=== PATIENT | female | born 1995 | race American Indian/Alaskan Native ===

== ENCOUNTER 2017-12-20 04:46 | Inpatient (IN) | payer MEDICAID ==
[2017-12-20] MEDS ORDERED: PITOCin/NS 20 UNIT/1000ML DRIP 20 UNITS/1,000 ML BAG IV SCH ×2 (06:00→22:00)
[2017-12-20 06:10] LABS: Hematocrit 37.4 % (30.3-42.9); Hemoglobin 12.4 gm/dl (10.1-14.3); Mean Corpuscular HGB Conc 33 % (30-34); Mean Corpuscular Hemoglobin 31 pg (28-32); Mean Corpuscular Volume 94 fl (79-97); Platelet Count 239 K/mm3 (140-440); Red Cell Distribution Width 15.8 % (13.2-15.2)
[2017-12-20 07:28] LABS: Amphetamine Screen,Urine PRESUMPTIVE NEGATIVE; Benzodiazepines Screen,Urine PRESUMPTIVE NEGATIVE; Cannabinoid Screen,Urine PRESUMPTIVE NEGATIVE; Cocaine Screen,Urine PRESUMPTIVE NEGATIVE; Methadone Screen,Urine PRESUMPTIVE NEGATIVE; Opiate Screen,Urine PRESUMPTIVE NEGATIVE
[2017-12-20] MEDS: LACTATED RINGERS 1,000 ML IV SCH (08:09)
--- NOTE | 2017-12-20 17:39 | Ultrasound Report ---
FINAL REPORT PROCEDURE: US OB LIMITED TECHNIQUE: Real-time limited sonographic examination was performed for evaluation of amniotic fluid volume for each fetus with image documentation (1 or more fetuses). CPT 81081 HISTORY: RIP COMPARISON: No prior studies are available for comparison. FINDINGS: FETUS IUP: Single living intrauterine . Position: Cephalic. Amniotic fluid volume: Amniotic fluid index measures 8.7 centimeters Heart rate and rhythm: 156 BPM, Regular . IMPRESSION: Amniotic fluid index measures 8.7 centimeters
[2017-12-20] MEDS ORDERED: PITOCin/NS 30 UNIT/500ML 30 UNITS/500 ML BAG IV SCH (19:00)
[2017-12-20] MEDS: STADOL IV PRN ×2 (19:11→22:03)
--- NOTE | 2017-12-20 21:28 | History and Physical Report ---
History of Present Illness Date of examination: 12/20/17 Date of admission: 12/20/17 05:59 Chief complaint: My water broke History of present illness: Pt is a 22 year old female who presents agt 39 weeks with complaint of leaking of fluids. Patient states she had some leakage at approximately 4am then reported to triage. In triage she was nitrazine positive but no other testing was done. The patient was having minimal contractions and was 1/70 an posterior. Throughout the day, patient had little to no further LOF and an RIP was equivocal at 8. Decision was then made to proceed with augmentation/ induction of labor as rupture of membranes could not be definitively ruled in or out. Patient had report stating she was GBS negative. No other labs were available. Past History Past Medical History: no pertinent history Past Surgical History: no surgical history Social history: single - Obstetrical History Expected Date of Delivery: 12/27/17 Actual Gestation: 39 Week(s) 0 Day(s) : 1 Medications and Allergies Allergies Allergy/AdvReac Type Severity Reaction Status Date / Time No Known Allergies Allergy Unverified 12/20/17 05:29 Home Medications Medication Instructions Recorded Confirmed Last Taken Type Ferrous Sulfate 325 mg PO QHS 12/20/17 12/20/17 12/18/17 History Vit-Fe Fumar-FA [ 1 tab PO QDAY 12/20/17 12/20/17 12/19/17 History Vitamin] Active Meds: Active Medications Butorphanol Tartrate (Stadol) 2 mg IV Q2H PRN PRN Reason: Labor Pain Last Admin: 12/20/17 19:11 Dose: 2 mg Lactated Ringer's (Lactated Ringers) 1,000 mls @ 125 mls/hr IV DIRECT DAMIR Last Admin: 12/20/17 08:09 Dose: 125 mls/hr Oxytocin/Sodium Chloride (Pitocin/Ns 20 Unit/1000ml Drip) 20 units in 1,000 mls @ 125 mls/hr IV DIRECT DAMIR Oxytocin/Sodium Chloride (Pitocin/Ns 30 Unit/500ml) 30 units in 500 mls @ 2 mls /hr IV TITR DAMIR; Protocol Last Admin: 12/20/17 19:23 Dose: 2 ml/hr, 2 mls/hr Review of Systems All systems: negative Genitourinary: leakage of fluid, contractions - Vital Signs Vital signs: Vital Signs Pulse BP 80 111/72 12/20/17 05:05 12/20/17 05:05 Temp Pulse Resp BP Pulse Ox 98.2 F 59 L 14 127/74 100 12/20/17 18:55 12/20/17 21:20 12/20/17 18:55 12/20/17 19:23 12/20/17 21:20 - Physical Exam Breasts: Cardiovascular: Regular rate, Normal S1, Normal S2 Abdomen: Positive: normal appearance, soft, normal bowel sounds. Negative: distention, tenderness Vulva: both: normal Vagina: Positive: normal moisture. Negative: discharge Cervix: Negative: lesion, discharge Uterus: Positive: normal size, normal contour Adnexa: both: normal Anus/Rectum: Positive: normal perianal skin, heme negative. Negative: rectal mass, hemorrhoids Extremities: Deep Tendon Reflex Grade: Normal +2 - Obstetrical FHR: auscultation normal Cervical Dilatation: 1 Cervical Effacement Percentage: 70 Uterine Contraction Pattern: Irregular Uterine Contraction Intensity: Mild Results Result Diagrams: 12/20/17 05:45 Abnormal lab results 12/20/17 Range/Units 05:45 RDW 15.8 H (13.2-15.2) % All other labs normal. Assessment and Plan IUP at 39 weeks with questionable rupture of membranes. Admit for augmentation. Anticipate .
[2017-12-20] MEDS ORDERED: MINERAL OIL PO PRN (21:31)
[2017-12-20] MEDS ORDERED: ZOFRAN IV PRN (21:31)
[2017-12-20] MEDS ORDERED: NARCAN 0.4 MG/1 ML IV PRN (21:31)
[2017-12-20] MEDS ORDERED: BRETHINE SUB-Q PRN (21:31)
[2017-12-20] MEDS ORDERED: XYLOCAINE 2% INFILTRATI ONE (21:31)
[2017-12-20] MEDS ORDERED: BRETHINE IVP PRN (21:31)
[2017-12-21] MEDS: LACTATED RINGERS 1,000 ML IV SCH ×3 (00:30→07:07)
[2017-12-21] MEDS ORDERED: NARCAN 2 MG/2 ML IV PRN (02:35)
[2017-12-21] MEDS ORDERED: fentaNYL-BUPIV 2 MCG/ML-0.125% 200 MCG/100 ML BAG EPIDURAL SCH (03:00)
--- NOTE | 2017-12-21 07:47 | Progress Note ---
Assessment and Plan A: IUP at term transitional labor P: artificial rupture of forebag Pitocin induction Anticipate Subjective - Subjective Date of service: 12/21/17 Patient reports: new complaints, loss of fluid, movement normal, contractions, no vaginal bleeding Objective - Vital Signs Vital Signs: Vital Signs - 12hr 12/20/17 12/20/17 12/20/17 19:50 19:55 20:00 Temperature Pulse Rate 60 64 67 Respiratory Rate Blood Pressure Blood Pressure [Left] O2 Sat by Pulse 96 97 96 Oximetry 12/20/17 12/20/17 12/20/17 20:04 20:05 20:10 Temperature Pulse Rate 60 57 L 57 L Respiratory Rate Blood Pressure Blood Pressure [Left] O2 Sat by Pulse 94 95 96 Oximetry 12/20/17 12/20/17 12/20/17 20:11 20:15 20:20 Temperature Pulse Rate 56 L 57 L 58 L Respiratory Rate Blood Pressure Blood Pressure [Left] O2 Sat by Pulse 93 95 97 Oximetry 12/20/17 12/20/17 12/20/17 20:25 20:30 20:35 Temperature Pulse Rate 59 L 59 L 58 L Respiratory Rate Blood Pressure Blood Pressure [Left] O2 Sat by Pulse 96 96 97 Oximetry 12/20/17 12/20/17 12/20/17 20:40 20:44 20:45 Temperature Pulse Rate 58 L 68 58 L Respiratory Rate Blood Pressure Blood Pressure [Left] O2 Sat by Pulse 98 85 96 Oximetry 12/20/17 12/20/17 12/20/17 20:50 20:52 20:55 Temperature Pulse Rate 59 L 55 L 59 L Respiratory Rate Blood Pressure Blood Pressure [Left] O2 Sat by Pulse 99 76 L 99 Oximetry 12/20/17 12/20/17 12/20/17 20:59 21:00 21:05 Temperature Pulse Rate 56 L 61 59 L Respiratory Rate Blood Pressure Blood Pressure [Left] O2 Sat by Pulse 94 99 98 Oximetry 12/20/17 12/20/17 12/20/17 21:10 21:11 21:15 Temperature Pulse Rate 60 80 57 L Respiratory Rate Blood Pressure Blood Pressure [Left] O2 Sat by Pulse 100 86 100 Oximetry 12/20/17 12/20/17 12/20/17 21:17 21:20 21:25 Temperature Pulse Rate 61 59 L 65 Respiratory Rate Blood Pressure Blood Pressure [Left] O2 Sat by Pulse 85 100 100 Oximetry 12/20/17 12/20/17 12/20/17 21:30 21:35 21:36 Temperature Pulse Rate 58 L 30 L 72 Respiratory Rate Blood Pressure Blood Pressure [Left] O2 Sat by Pulse 100 69 L 59 L Oximetry 12/20/17 12/20/17 12/20/17 21:40 21:41 21:45 Temperature Pulse Rate 76 66 Respiratory Rate Blood Pressure Blood Pressure [Left] O2 Sat by Pulse 78 L 87 100 Oximetry 12/20/17 12/20/17 12/20/17 21:46 21:50 21:55 Temperature Pulse Rate 81 61 62 Respiratory Rate Blood Pressure 109/65 Blood Pressure [Left] O2 Sat by Pulse 93 100 99 Oximetry 12/20/17 12/20/17 12/20/17 21:58 22:00 22:05 Temperature 97.9 F Pulse Rate 92 H 74 76 Respiratory 18 Rate Blood Pressure Blood Pressure [Left] O2 Sat by Pulse 94 100 100 Oximetry 12/20/17 12/20/17 12/20/17 22:10 22:15 22:20 Temperature Pulse Rate 70 71 66 Respiratory Rate Blood Pressure Blood Pressure [Left] O2 Sat by Pulse 97 96 92 Oximetry 12/20/17 12/20/17 12/20/17 22:40 22:45 22:48 Temperature Pulse Rate 58 L 71 71 Respiratory Rate Blood Pressure Blood Pressure [Left] O2 Sat by Pulse 95 94 94 Oximetry 12/20/17 12/20/17 12/20/17 22:50 22:55 23:00 Temperature Pulse Rate 73 60 59 L Respiratory Rate Blood Pressure Blood Pressure [Left] O2 Sat by Pulse 94 96 97 Oximetry 12/20/17 12/20/17 12/20/17 23:05 23:10 23:15 Temperature Pulse Rate 58 L 61 58 L Respiratory Rate Blood Pressure Blood Pressure [Left] O2 Sat by Pulse 97 97 98 Oximetry 12/20/17 12/20/17 12/20/17 23:20 23:23 23:24 Temperature Pulse Rate 58 L 60 83 Respiratory Rate Blood Pressure 119/74 Blood Pressure [Left] O2 Sat by Pulse 97 92 Oximetry 12/20/17 12/20/17 12/20/17 23:25 23:33 23:35 Temperature Pulse Rate 43 L 53 L 61 Respiratory Rate Blood Pressure 117/71 Blood Pressure [Left] O2 Sat by Pulse 83 L 100 Oximetry 12/20/17 12/20/17 12/20/17 23:40 23:41 23:45 Temperature Pulse Rate 25 L 25 L 83 Respiratory Rate Blood Pressure Blood Pressure [Left] O2 Sat by Pulse 85 75 L 99 Oximetry 12/20/17 12/20/17 12/21/17 23:50 23:55 00:05 Temperature 97.5 F L Pulse Rate 69 80 Respiratory 16 Rate Blood Pressure Blood Pressure [Left] O2 Sat by Pulse 100 86 Oximetry 12/21/17 12/21/17 12/21/17 01:39 01:54 01:55 Temperature Pulse Rate 81 63 56 L Respiratory Rate Blood Pressure 129/63 Blood Pressure [Left] O2 Sat by Pulse 100 84 Oximetry 12/21/17 12/21/17 12/21/17 01:59 02:00 02:02 Temperature 97.7 F Pulse Rate 63 72 Respiratory 16 Rate Blood Pressure Blood Pressure [Left] O2 Sat by Pulse 100 75 L Oximetry 12/21/17 12/21/17 12/21/17 02:04 02:06 02:08 Temperature Pulse Rate 69 60 58 L Respiratory Rate Blood Pressure 119/69 114/67 Blood Pressure [Left] O2 Sat by Pulse 100 Oximetry 12/21/17 12/21/17 12/21/17 02:09 02:10 02:11 Temperature Pulse Rate 63 63 83 Respiratory Rate Blood Pressure 113/69 Blood Pressure [Left] O2 Sat by Pulse 100 89 Oximetry 12/21/17 12/21/17 12/21/17 02:12 02:14 02:16 Temperature Pulse Rate 62 61 63 Respiratory Rate Blood Pressure 117/60 114/61 113/63 Blood Pressure [Left] O2 Sat by Pulse 99 Oximetry 12/21/17 12/21/17 12/21/17 02:18 02:19 02:20 Temperature Pulse Rate 63 66 87 Respiratory Rate Blood Pressure 112/64 105/59 Blood Pressure [Left] O2 Sat by Pulse 99 Oximetry 12/21/17 12/21/17 12/21/17 02:22 02:24 02:26 Temperature Pulse Rate 111 H 66 72 Respiratory Rate Blood Pressure 106/58 110/58 116/63 Blood Pressure [Left] O2 Sat by Pulse 100 Oximetry 12/21/17 12/21/17 12/21/17 02:28 02:29 02:30 Temperature Pulse Rate 70 71 74 Respiratory Rate Blood Pressure 110/60 117/66 Blood Pressure [Left] O2 Sat by Pulse 97 Oximetry 12/21/17 12/21/17 12/21/17 02:32 02:36 02:38 Temperature Pulse Rate 71 68 73 Respiratory Rate Blood Pressure 120/58 116/56 112/63 Blood Pressure [Left] O2 Sat by Pulse 93 Oximetry 12/21/17 12/21/17 12/21/17 02:40 02:42 02:44 Temperature Pulse Rate 59 L 64 70 Respiratory Rate Blood Pressure 113/55 105/61 105/59 Blood Pressure [Left] O2 Sat by Pulse Oximetry 12/21/17 12/21/17 12/21/17 02:46 02:48 02:50 Temperature Pulse Rate 61 68 62 Respiratory Rate Blood Pressure 135/58 99/54 94/56 Blood Pressure [Left] O2 Sat by Pulse Oximetry 12/21/17 12/21/17 12/21/17 02:52 02:54 02:56 Temperature Pulse Rate 59 L 65 63 Respiratory Rate Blood Pressure 102/61 104/65 107/66 Blood Pressure [Left] O2 Sat by Pulse Oximetry 12/21/17 12/21/17 12/21/17 02:58 03:00 03:02 Temperature Pulse Rate 59 L 59 L 63 Respiratory Rate Blood Pressure 109/63 109/63 106/61 Blood Pressure [Left] O2 Sat by Pulse Oximetry 12/21/17 12/21/17 12/21/17 03:04 03:06 03:08 Temperature Pulse Rate 61 61 63 Respiratory Rate Blood Pressure 111/58 110/61 111/61 Blood Pressure [Left] O2 Sat by Pulse Oximetry 12/21/17 12/21/17 12/21/17 03:10 03:13 03:14 Temperature Pulse Rate 64 59 L 61 Respiratory Rate Blood Pressure 108/60 103/51 99/50 Blood Pressure [Left] O2 Sat by Pulse Oximetry 12/21/17 12/21/17 12/21/17 03:16 03:18 03:20 Temperature Pulse Rate 60 63 66 Respiratory Rate Blood Pressure 98/54 97/52 100/58 Blood Pressure [Left] O2 Sat by Pulse Oximetry 12/21/17 12/21/17 12/21/17 03:22 03:24 03:40 Temperature Pulse Rate 60 66 66 Respiratory Rate Blood Pressure 105/56 104/56 99/56 Blood Pressure [Left] O2 Sat by Pulse Oximetry 12/21/17 12/21/17 12/21/17 03:54 05:26 05:41 Temperature Pulse Rate 65 69 68 Respiratory Rate Blood Pressure 95/54 95/50 97/54 Blood Pressure [Left] O2 Sat by Pulse Oximetry 12/21/17 12/21/17 12/21/17 06:09 06:25 06:39 Temperature Pulse Rate 62 57 L 65 Respiratory Rate Blood Pressure 109/62 113/65 113/66 Blood Pressure [Left] O2 Sat by Pulse Oximetry 12/21/17 12/21/17 12/21/17 06:55 07:01 07:07 Temperature 98.1 F Pulse Rate 65 74 65 Respiratory 18 Rate Blood Pressure 111/66 109/67 Blood Pressure 114/66 [Left] O2 Sat by Pulse Oximetry 12/21/17 12/21/17 12/21/17 07:08 07:24 07:39 Temperature Pulse Rate 65 64 61 Respiratory Rate Blood Pressure 114/66 105/63 107/63 Blood Pressure [Left] O2 Sat by Pulse Oximetry - Exam Breasts: deferred Abdomen: Present: normal appearance FHR: category 2 Uterine Contraction Monitor Mode: External Cervical Dilatation: 9 Cervical Effacement Percentage: 90 station: -1 Uterine Contraction Frequency (min): 2-3 Uterine Contraction Pattern: Irregular Uterine Tone Measurement Phase: Resting Uterine Contraction Intensity: Strong/Firm - Labs Labs: Abnormal Labs 12/20/17 05:45 RDW 15.8 H Laboratory Results - last 24 hr 12/20/17 12/20/17 05:45 07:00 Drugs of Abuse Note Disclamer RPR Nonreactive
[2017-12-21] MEDS ORDERED: PHENERGAN PR PRN (14:14)
[2017-12-21] MEDS ORDERED: TUCKS PAD TP PRN (14:14)
[2017-12-21] MEDS ORDERED: TYLENOL PO PRN (14:14)
[2017-12-21] MEDS ORDERED: PHENERGAN PO PRN (14:14)
[2017-12-21] MEDS ORDERED: ZOFRAN IV PRN (14:14)
[2017-12-21] MEDS ORDERED: BENADRYL PO PRN (14:14)
[2017-12-21] MEDS ORDERED: MILK OF MAGNESIA PO PRN (14:14)
[2017-12-21] MEDS ORDERED: DULCOLAX PR PRN (14:14)
[2017-12-21] MEDS ORDERED: LANSINOH TP PRN (14:14)
[2017-12-21] MEDS ORDERED: NORCO 5/325 PO PRN (14:14)
--- NOTE | 2017-12-21 14:14 | Procedure Note ---
OB Delivery Note - Delivery Date of Delivery: 12/21/17 (male @ 1145) Surgeon: SIERRA MONTES Estimated blood loss: 100cc - Vaginal Delivery presentation: vertex Delivery position: OA Intrapartum events: none Delivery augmentation: rupture of membranes, pitocin Delivery monitor: external FHT, external uterine Route of delivery: Delivery placenta: spontaneous Delivery cord: nuchal cord (loose x 1) Episiotomy: none Delivery laceration: 1st degree Delivery repair: vicryl (3.[address]) Anesthesia: epidural - A at 1 minute: 9 at 5 minutes: 9 Infant Gender: Male (Pushed for viable male infant, bulb suctioned and placed skin to skin. Cord blood collecte. Spont placenta, bleeding small. Pitocin infusing. Laceration as noted. Approximated with 2 interrupted stitiches.)
[2017-12-21] MEDS ORDERED: SODIUM CHLORIDE FLUSH SYRINGE 10 ML IV SCH (15:00)
[2017-12-21] MEDS ORDERED: DERMOPLAST TP PRN (16:56)
[2017-12-21] MEDS: MOTRIN PO SCH (18:28)
[2017-12-22] MEDS: MOTRIN PO SCH ×4 (00:01→17:15)
[2017-12-22 02:22] LABS: Hematocrit 33.9 % (30.3-42.9); Hemoglobin 11.2 gm/dl (10.1-14.3)
[2017-12-22] MEDS ORDERED: BOOSTRIX IM ONE (06:00)
--- NOTE | 2017-12-22 08:17 | Progress Note ---
Assessment and Plan A: PPD#1 s/p P: Routine care Anticipate discharge tomorrow Subjective - Subjective Date of service: 12/22/17 Principal diagnosis: s/p at term Interval history: No overnight events. Pt concerned about her baby's breathing. Patient reports: appetite normal, voiding normally, pain well controlled, ambulating normally [place]: doing well Objective - Vital Signs Latest vital signs: Vital Signs Temp Pulse Resp BP BP Pulse Ox 12/22/17 00:00 98.2 F 75 18 105/62 12/21/17 20:10 98.2 F 61 18 111/56 12/21/17 15:45 97.8 F 68 18 116/78 98 12/21/17 13:09 97.6 F 65 18 110/61 99 12/21/17 12:24 68 111/63 12/21/17 12:15 67 104/57 12/21/17 12:10 83 102/51 12/21/17 11:39 110/59 12/21/17 11:24 64 112/62 12/21/17 11:09 75 113/58 12/21/17 11:08 66 142/60 12/21/17 10:55 83 119/58 12/21/17 10:41 109 H 135/78 12/21/17 10:25 68 192/88 12/21/17 10:10 65 125/75 12/21/17 09:54 64 118/68 12/21/17 09:40 63 106/55 12/21/17 09:26 62 125/72 12/21/17 09:10 63 131/73 12/21/17 09:05 78 101/61 12/21/17 08:40 68 116/73 12/21/17 08:24 60 103/55 Intake and Output 12/21/17 12/22/17 12/22/17 22:59 06:59 14:59 Intake Total 360 360 Output Total 300 300 Balance 60 60 Intake: Oral 360 360 Output: Urine 300 300 Void 300 300 Other: Total, Intake Amount 360 120 Total, Output Amount 300 300 # Voids Void 3 - Exam Breasts: Present: deferred Cardiovascular: Present: Regular rate Lungs: Present: Clear to auscultation Abdomen: Present: soft Uterus: Present: fundal height below umbilicus Extremities: Present: normal
--- NOTE | 2017-12-22 08:22 | Discharge Summary ---
Providers - Providers Date of Admission: 12/20/17 05:59 Date of discharge: 12/23/17 Attending physician: IMELDA MARTIN Primary care physician: IMELDA MARTIN Hospitalization Reason for admission: rupture of membranes Delivery: Procedure details: Please see delivery note Episiotomy: none Laceration: 1st degree Other procedures: none complications: none Discharge diagnosis: IUP at term delivered baby: male Hospital course: Pt was admitted with rupture of membranes, and went on to have a vaginal delivery which she tolerated well. Her course was uncomplicated and she met discharge criteria on PPD#2. She will follow up in 4 wks at the office. Condition at discharge: Stable Disposition: DC-01 TO HOME OR SELFCARE - Discharge Diagnoses (1) Term of male Status: Acute Plan - Discharge Medications Prescriptions: HYDROcodone/APAP 5-325 [[place] 5/325] 1 each PO Q6HR PRN #20 tablet PRN Reason: Pain Ibuprofen [Motrin] 800 mg PO Q8HR PRN #30 tablet PRN Reason: Pain, Moderate (4-6) - Provider Discharge Summary Activity: routine, no sex for 6 weeks, no heavy lifting 4 weeks, no strenuous exercise Diet: routine Instructions: routine Additional instructions: [] Smoking cessation referral if applicable(refer to patient education folder for contact #) [] Refer to [facility] Booklet Call your doctor immediately for: * Fever > 100.5 * Heavy vaginal bleeding ( >1 pad per hour) * Severe persistent headache * Shortness of breath * Reddened, hot, painful area to leg or breast * Drainage or odor from incision. * Keep incision clean and dry at all times and follow doctor's instructions regarding bathing/showering Please schedule your son's circumcision before he is one month old. - Follow up plan Follow up: SIERRA MONTES CNM [Advanced Practice Nurse] - 01/18/18 (Please call for appt )
[2017-12-22] MEDS: PRENATAL VITAMIN PO SCH (10:48)
[2017-12-23] MEDS: MOTRIN PO SCH ×2 (00:53→05:38)
[2017-12-23 07:40] VITALS: BP 108/73
[2017-12-23] MEDS: PRENATAL VITAMIN PO SCH (10:48)
== END 2017-12-23 14:45 | disposition home or self-care (01) | DRG 775 ==
LOC: TRG 04:46 → LD 05:59 → OB 12-21 13:14
PROVIDERS: ADMIT Obstetrics & Gynecology; ATTEND Obstetrics & Gynecology
PROC: 10E0XZZ Delivery of Products of Conception, External Approach (ICD-10-PCS; principal; 2017-12-21)
PROC: 0HQ9XZZ Repair Perineum Skin, External Approach (ICD-10-PCS; 2017-12-21)
PROC: 3E0R3BZ Introduction of Anesthetic Agent into Spinal Canal, Percutaneous Approach (ICD-10-PCS; 2017-12-21)
PROC: 00HU33Z Insertion of Infusion Device into Spinal Canal, Percutaneous Approach (ICD-10-PCS; 2017-12-21)
PROC: 3E0234Z Introduction of Serum, Toxoid and Vaccine into Muscle, Percutaneous Approach (ICD-10-PCS; 2017-12-22)
DX: O69.81X0 Labor and delivery complicated by cord around neck, without compression, not applicable or unspecified (principal); O70.0 First degree perineal laceration during delivery; Z3A.39 39 weeks gestation of pregnancy; Z37.0 Single live birth; Z23 Encounter for immunization
CPT/HCPCS: 36415; 76815; 80307; 85014; 85018; 85027; 86592; 86850; 86900; 86901; 90715; 99211; A6250; G0463; J0595; J2405; J2590; J7120